=== PATIENT | female | born 1970 | race Asian ===

== ENCOUNTER 2021-04-01 17:26 | Emergency (ER) | payer OTHER ==
[2021-04-01 18:25] LABS: BASOPHILS % (AUTO) 0.2 %; EOSINOPHILS # (AUTO) 0.6 10^3/uL (0.0-0.7); EOSINOPHILS % (AUTO) 7.5 %; HGB - HEMOGLOBIN 11.4 g/dL (12.0-16.0); LYMPHOCYTES # (AUTO) 3.2 10^3/uL (1.5-3.5); LYMPHOCYTES % (AUTO) 37.1 %; MEAN CORPUSCULAR HEMOGLOBIN 29.2 pg (27.0-31.0); MEAN CORPUSCULAR HGB CONC 32.6 g/dL (32.0-36.0); MEAN CORPUSCULAR VOLUME 89.7 fL (81.0-99.0); MEAN PLATELET VOLUME 9.2 fL (7.9-10.8); MONOCYTES # (AUTO) 0.6 10^3/uL (0.0-1.0); MONOCYTES % (AUTO) 6.7 %; NEUTROPHILS # (AUTO) 4.1 10^3/uL (1.5-6.6); NEUTROPHILS % (AUTO) 48.4 %; PLT - PLATELET COUNT 299 10^3/uL (130-450); WHITE BLOOD COUNT 8.5 x10^3/uL (4.8-10.8)
[2021-04-01 18:36] LABS: ALBUMIN 4.8 g/dL (3.2-5.5); ALBUMIN/GLOBULIN RATIO 1.5 (1.0-2.2); BILIRUBIN,TOTAL 0.7 mg/dL (0.2-1.0); CALCIUM 8.9 mg/dL (8.5-10.3); CREATININE 0.8 mg/dL (0.4-1.0); POTASSIUM 3.9 mmol/L (3.5-5.0); TOTAL PROTEIN 7.9 g/dL (6.7-8.2)
[2021-04-01] MEDS ORDERED: DOXEPIN 10 MG CAPSULE PO STA (19:26)
[2021-04-01] MEDS ORDERED: FLUCONAZOLE 100 MG TABLET PO STA (19:26)
--- NOTE | 2021-04-01 19:27 | ED Physician Documentation ---
PD HPI ABD PAIN - Stated complaint Stated Complaint: FEMALE - Chief complaint Chief Complaint: Abd Pain - History obtained from History obtained from: Patient - Additional information Additional information: 50-year-old woman who has been dealing with some odd menses lately. Culminating in the last 2 weeks she has had heavy bleeding with clots. It is associated with a burning and itchy rash to the intertriginous folds. She has tried hydroxyzine for the itching which is not too helpful[place]. Review of Systems Ten Systems: 10 systems reviewed and negative Constitutional: reports: Reviewed and negative Eyes: reports: Reviewed and negative Cardiac: reports: Reviewed and negative PD PAST MEDICAL HISTORY - Present Medications Home Medications: Ambulatory Orders Medication Instructions Recorded Confirmed Doxepin [SINEquan] 10 mg PO TID PRN #30 cap 04/01/21 Fluticasone [Flonase] 2 spray RAYA DAILY 04/01/21 04/01/21 Montelukast [Singulair] 10 mg PO DAILY 04/01/21 04/01/21 Norgestimate-Ethinyl Estradiol 1 each PO TID #1 packet 04/01/21 [Ortho Tri-Cyclen 28 Tablet] - Allergies Allergies/Adverse Reactions: Allergies Allergy/AdvReac Type Severity Reaction Status Date / Time bismuth subsalicylate Allergy Rash Verified 04/01/21 17:59 [From Pepto-Bismol] PD ED PE NORMAL - Vitals Vital signs reviewed: Yes - General General: Alert and oriented X 3, No acute distress - HEENT HEENT: PERRL, EOMI - Neck Neck: Supple, no meningeal sign, No bony TTP - Abdomen Abdomen: Normal bowel sounds, Soft, Non tender - Derm Derm: Other (She has a yeast infection in the intertriginous folds of both eyes. It comes up to the mons and lower pelvic wall. Exam done with Ruby KEANE) - Neuro Neuro: Alert and oriented X 3, Normal speech Results - Vitals Vitals: Vital Signs - 24 hr 04/01/21 04/01/21 04/01/21 17:53 19:02 21:00 Temperature 35.9 C L 36.1 C L Heart Rate 76 76 77 Respiratory 16 16 17 Rate Blood Pressure 142/85 H 141/84 H 139/80 H O2 Saturation 97 98 97 Oxygen O2 Source Room air - Labs Labs: Laboratory Tests 04/01/21 04/01/21 04/01/21 18:03 18:15 19:51 WBC 8.5 RBC 3.90 L Hgb 11.4 L Hct 35.0 L MCV 89.7 MCH 29.2 MCHC 32.6 RDW 12.0 Plt Count 299 MPV 9.2 Neut # (Auto) 4.1 Lymph # (Auto) 3.2 [place] # (Auto) 0.6 Eos # (Auto) 0.6 Baso # (Auto) 0.0 Absolute Nucleated RBC 0.00 Nucleated RBC % 0.0 Sodium 139 Potassium 3.9 Chloride 102 Carbon Dioxide 28 Anion Gap 9.0 BUN 15 Creatinine 0.8 Estimated GFR (MDRD) 76 L Glucose 98 Calcium 8.9 Total Bilirubin 0.7 AST 18 ALT 14 Alkaline Phosphatase 53 Total Protein 7.9 Albumin 4.8 Globulin 3.1 Albumin/Globulin Ratio 1.5 Lipase 38 Urine Color RED/BLOODY Urine Clarity BLOODY Urine pH 5.5 Ur Specific [place] 1.025 Urine Protein 100 H Urine Glucose (UA) NEGATIVE Urine Ketones 15 H Urine Occult Blood LARGE H Urine Nitrite POSITIVE H Urine Bilirubin NEGATIVE Urine Urobilinogen 1 (NORMAL) Ur Leukocyte Esterase SMALL H Urine RBC TNTC H Urine WBC 4-5 Ur Squamous Epith Cells RARE Squamous Urine Bacteria Rare Ur Microscopic Review INDICATED Urine Culture Comments INDICATED Urine HCG, Qual NEGATIVE PD MEDICAL DECISION MAKING - ED course ED course: 50-year-old woman whose been having vaginal bleeding for the last 2 weeks. Hemodynamics are good. Mild anemia. test is negative. Ultrasound demonstrating ovarian cyst but a fairly thickened endometrial stripe. Case was discussed by phone with our on-call obstetric gynecologic financial operations consultant, Dr. Mcwilliams who agrees with high-dose control pending follow-up but does definitely follow-up for EMB versus potentially hysteroscopy. Departure - Departure Disposition: 01 Home, Self Care Condition: Good Record reviewed to determine appropriate education?: Yes Instructions: ED Bleed Irregular Vaginal, ED Vaginal Infec Fungal Genia Follow-Up: [facility] [Provider Group] Prescriptions: Norgestimate-Ethinyl Estradiol [Ortho Tri-Cyclen 28 Tablet] 1 each PO TID #1 packet Doxepin [SINEquan] 10 mg PO TID PRN #30 cap PRN Reason: Itching Comments: You were seen tonight for perimenopausal vaginal bleeding. Your hemoglobin was 11.4, hematocrit 35. White count and platelet counts were normal. Chemistries were normal. test was negative. We did an ultrasound which demonstrated a thickened endometrium with an endometrial stripe of 17 mm. This is abnormally thick. Discussed the case by phone with our obstetric financial operations consultant who recommended high-dose control but you do need to follow-up with your supervisor order takers for further evaluation which may include repeat ultrasonography or endometrial biopsy or hysteroscopy. You were also found to have a yeast infection of the skin folds in your groin. You did receive oral Diflucan for this which should take care of it but I am also prescribing the antiitch medication that we gave you here which was helpful for you. Return for new or worsening symptoms. Follow-up with the supervisor order takers that your primary care physician is deferring you to, if that does not work out I am also including the name of our local civilian supervisor order takers that she could follow-up with as well.
[2021-04-01 20:10] LABS: BILIRUBIN,URINE NEGATIVE (NEGATIVE); GLUCOSE, URINE (UA) NEGATIVE (NEGATIVE); KETONES,URINE (UA) 15 mg/dL (NEGATIVE); LEUKOCYTE ESTERASE, URINE SMALL (NEGATIVE); NITRITE,URINE POSITIVE (NEGATIVE); OCCULT BLOOD,URINE LARGE (NEGATIVE); PH,URINE 5.5 PH (5.0-7.5); PROTEIN,URINE 100 mg/dL (NEGATIVE); UROBILINOGEN,URINE 1 (NORMAL) E.U./dL (NORMAL)
[2021-04-01 20:12] LABS: CLARITY,URINE BLOODY (CLEAR)
[2021-04-01 20:14] LABS: HCG UR QUAL NEGATIVE
[2021-04-01 20:18] LABS: BACTERIA,URINE Rare /HPF (None Seen); RBC,URINE TNTC /HPF (0-5); SQUAMOUS EPITHELIAL CELL,UR RARE Squamous (<= Few)
[2021-04-01 22:01] VITALS: BP 140/81
--- NOTE | 2021-04-01 22:13 | Ultrasound Report ---
PROCEDURE: Pelvic w/Transvag+Doppler Comp INDICATIONS: Vaginal bleeding TECHNIQUE: Real-time scanning was performed of the pelvic organs, with image documentation. Additional endovagi nal scanning was necessary due to incomplete visualization of the adnexal and endometrial structures by transabdominal scanning. COMPARISON: None. FINDINGS: No pathologic free abdominal or pelvic fluid. Uterus: Uterus is normal in size at 8.9 x 5.4 x 6.4 cm. The endometrium measures 16.9 mm in combine d thickness. Ovaries: Right ovary measures 2.5 x 1.5 x 1.8 cm with total volume of 3.4 cc. Left ovary measures 3. 8 x 2.2 x 2.8 cm with total volume of 12.9 cm. There is a 2.2 x 1.4 x 2.3 cm cyst in the left ovary. Right ovary is sonographically normal. Doppler evaluation demonstrates normal vascular flow in the ov josue. IMPRESSION: 1. Mildly thickened endometrium measuring 16.9 cm secondary to hypertrophy or neoplastic process. Rec [facility] gynecology consultation. 2. 2.2 x 1.4 x 2.3 cm left ovarian cyst. Reviewed by: Keila Kam MD, PhD on 04/01/2021 10:12 PM PST Approved by: Keila Kam MD, PhD on 04/01/2021 10:12 PM PST Station ID: [id number]
== END 2021-04-01 22:00 | disposition home or self-care (01) ==
LOC: ED 17:26
DX: N93.9 Abnormal uterine and vaginal bleeding, unspecified (principal); R93.89 Abnormal findings on diagnostic imaging of other specified body structures
CPT/HCPCS: 36415; 76830; 76856; 80053; 81001; 81025; 83690; 85025; 87086; 93975; 99282; 99284; A9270; 81003

== ENCOUNTER 2021-04-09 17:39 | Emergency (ER) | payer OTHER ==
[2021-04-09 18:02] VITALS: BP 158/78
[2021-04-09 18:29] LABS: BILIRUBIN,URINE NEGATIVE (NEGATIVE); GLUCOSE, URINE (UA) NEGATIVE (NEGATIVE); KETONES,URINE (UA) NEGATIVE (NEGATIVE); LEUKOCYTE ESTERASE, URINE NEGATIVE (NEGATIVE); NITRITE,URINE NEGATIVE (NEGATIVE); OCCULT BLOOD,URINE TRACE-INTA (NEGATIVE); PROTEIN,URINE NEGATIVE (NEGATIVE); UROBILINOGEN,URINE 1 (NORMAL) E.U./dL (NORMAL)
--- NOTE | 2021-04-09 18:29 | ED Physician Documentation ---
History of Present Illness - Stated complaint Stated Complaint: FEMALE - Chief complaint Chief Complaint: General - History obtained from History obtained from: Patient - Additonal information Additional information: 50-year-old woman seen by me about a week ago for perimenopausal vaginal bleeding. She had an incidental likely yeast infection of the groin was treated with single dose Diflucan here, but continues to have a burning rash in the groin on both sides. 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 - Present Medications Home Medications: Ambulatory Orders Medication Instructions Recorded Confirmed Doxepin [SINEquan] 10 mg PO TID PRN #30 cap 04/01/21 Fluticasone [Flonase] 2 spray RAYA DAILY 04/01/21 04/01/21 Montelukast [Singulair] 10 mg PO DAILY 04/01/21 04/01/21 Norgestimate-Ethinyl Estradiol 1 each PO TID #1 packet 04/01/21 [Ortho Tri-Cyclen 28 Tablet] Fluconazole 150 mg PO Q3D #2 tablet 04/09/21 Nystatin [Nystop] 1 applic TOP BID #3 bottle 04/09/21 - Allergies Allergies/Adverse Reactions: Allergies Allergy/AdvReac Type Severity Reaction Status Date / Time bismuth subsalicylate Allergy Rash Verified 04/09/21 17:56 [From Pepto-Bismol] - Social History Does the pt smoke?: No Smoking Status: Never smoker Does the pt drink ETOH?: No Does the pt have substance abuse?: No - Immunizations Immunizations are current?: Yes PD ED PE NORMAL - Vitals Vital signs reviewed: Yes - General General: Alert and oriented X 3, No acute distress - Abdomen Abdomen: Soft, Non tender - Female Female : Other (External groin exam done with RN present and Corine gibbs, she appears to have vulvar candidiasis.) - Neuro Neuro: Alert and oriented X 3, Normal speech Results - Vitals Vitals: Vital Signs - 24 hr 04/09/21 17:58 Temperature 36.5 C Heart Rate 73 Respiratory 18 Rate Blood Pressure 158/78 H O2 Saturation 99 Oxygen O2 Source Room air - Labs Labs: Laboratory Tests 04/09/21 18:15 Urine Color YELLOW Urine Clarity CLEAR Urine pH 7.0 Ur Specific [place] 1.020 Urine Protein NEGATIVE Urine Glucose (UA) NEGATIVE Urine Ketones NEGATIVE Urine Occult Blood TRACE-INTA Urine Nitrite NEGATIVE Urine Bilirubin NEGATIVE Urine Urobilinogen 1 (NORMAL) Ur Leukocyte Esterase NEGATIVE Ur Microscopic Review NOT INDICATED Urine Culture Comments NOT INDICATED Urine HCG, Qual NEGATIVE Departure - Departure Disposition: 01 Home, Self Care Clinical Impression: Candidiasis of genitalia Condition: Good Record reviewed to determine appropriate education?: Yes Instructions: ED Vaginal Infec Fungal Genia Follow-Up: Alexia Pascual MD [Provider Admit Priv/Credential] - Prescriptions: Fluconazole 150 mg PO Q3D #2 tablet Nystatin [Nystop] 1 applic TOP BID #3 bottle Comments: It still looks like a yeast infection that has not cleared up from the prior treatment. For that I am giving you a longer course of treatment. Please note that you only take the pill every 3 days, and you got 1 tonight so your next dose would be Thursday and then after that Thursday. You can also use the powder which should be helpful. Continue your efforts to try to get in with the gynecology clinic as you still need that follow-up based on the prior diagnostic information. Return if worsening. Urinalysis is normal.
[2021-04-09 18:33] LABS: CLARITY,URINE CLEAR (CLEAR); HCG UR QUAL NEGATIVE
[2021-04-09] MEDS: FLUCONAZOLE 100 MG TABLET PO STA (18:40)
== END 2021-04-09 18:44 | disposition home or self-care (01) ==
LOC: ED 17:39
DX: B37.3 Candidiasis of vulva and vagina (principal)
CPT/HCPCS: 81003; 81025; 99283; A9270; 81001; 87086

== ENCOUNTER 2021-04-17 20:18 | Emergency (ER) | payer OTHER ==
--- NOTE | 2021-04-17 20:41 | ED Physician Documentation ---
PD HPI FEMALE - Stated complaint Stated Complaint: FEMALE - Chief complaint Chief Complaint: Abd Pain - History obtained from History obtained from: Patient - History of Present Illness Timing - onset: How many months ago (1) Timing - details: Abrupt onset, Waxing and waning Pain level max: 0 Pain level max: 0 Associated symptoms: Vaginal bleeding. No: Fever, Abdominal pain, Back pain, Pelvic pain, Vaginal pain Contributing factors: No: Recently seen: Clinic, Emergency Dept - Additional information Additional information: c/o vaginal bleeding starting in February, intermittent since then but recently restarted. She also c/o vulvar pruritis. She was evaluated at [facility] before then being evaluated in [facility] ED 04/01 (prescribed ortho tri and doxepin for prutitis, then returned to this ED 04/09 for same c/o, prescribe fluconazole , 1 Q3 days x 3 doses total, as well as nystatin topical. She says she has an appointment with motion picture set worker next week but is concerned with the ongoing vaginal bleeding and irritated by the ongoing pruritis. Review of Systems Constitutional: denies: Fever : reports: Vaginal bleeding. 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 - Present Medications Home Medications: Ambulatory Orders Medication Instructions Recorded Confirmed Doxepin [SINEquan] 10 mg PO TID PRN #30 cap 04/01/21 Fluticasone [Flonase] 2 spray RAYA DAILY 04/01/21 04/01/21 Montelukast [Singulair] 10 mg PO DAILY 04/01/21 04/01/21 Norgestimate-Ethinyl Estradiol 1 each PO TID #1 packet 04/01/21 [Ortho Tri-Cyclen 28 Tablet] Fluconazole 150 mg PO Q3D #2 tablet 04/09/21 Nystatin [Nystop] 1 applic TOP BID #3 bottle 04/09/21 Doxepin [SINEquan] 10 mg PO TID PRN #20 cap 04/17/21 Ketoconazole 2% Cream [Nizoral 2% 1 applic TOP BID #15 gm 04/17/21 Cream] - Allergies Allergies/Adverse Reactions: Allergies Allergy/AdvReac Type Severity Reaction Status Date / Time bismuth subsalicylate Allergy Rash Verified 04/17/21 20:23 [From Pepto-Bismol] - Social History Does the pt smoke?: No Smoking Status: Never smoker Does the pt drink ETOH?: No Does the pt have substance abuse?: No - Immunizations Immunizations are current?: Yes PD ED PE NORMAL - Vitals Vital signs reviewed: Yes - General General: Alert and oriented X 3, No acute distress, Well developed/nourished - Abdomen Abdomen: Soft, Non tender - Female Female : Online Services Manager present, Other (no active bleeding. there is a confluent flat exanthem surrounding vulva and extending to proximal thighs and outer margins of gluteal fold; it is dry, scaly, and has violaceous hue) Results - Vitals Vitals: Oxygen O2 Source Room air - Labs Labs: Laboratory Tests 04/17/21 21:20 WBC 8.4 RBC 3.48 L Hgb 9.8 L Hct 30.1 L MCV 86.5 MCH 28.2 MCHC 32.6 RDW 11.8 L Plt Count 322 MPV 8.6 Neut # (Auto) 4.0 Lymph # (Auto) 3.2 [place] # (Auto) 0.6 Eos # (Auto) 0.7 Baso # (Auto) 0.0 Absolute Nucleated RBC 0.00 Nucleated RBC % 0.0 PD MEDICAL DECISION MAKING - ED course Complexity details: reviewed results, considered differential, d/w patient ED course: repeat CBC shows drop in hemoglobin but not to extent that requires further emergent testing nor intervention (such as transfusion). The exanthem appears possibly c/w tinea cruris; while fluconazole should cover this organism, nystatin often does not and thus will trial on ketoconazole until she can follow up. She says the doxepin had been working for the pruritis at night but she is out, and a new rx for this is sent to her pharmacy Departure - Departure Disposition: 01 Home, Self Care Clinical Impression: Tinea cruris Condition: Good Instructions: ED Bleed Irregular Vaginal, ED Tinea Cruris General Prescriptions: Ketoconazole 2% Cream [Nizoral 2% Cream] 1 applic TOP BID #15 gm Doxepin [SINEquan] 10 mg PO TID PRN #20 cap PRN Reason: Itching Comments: Stop the previously prescribed powder and instead apply the cream I have prescribed (ketoconazole). The prescription has been electronically submitted to [facility] pharmacy in [place], as well as a prescription for the doxepin (to help with the itching) Discharge Date/Time: 04/17/21 23:15
[2021-04-17 21:26] LABS: BASOPHILS % (AUTO) 0.5 %; EOSINOPHILS # (AUTO) 0.7 10^3/uL (0.0-0.7); HCT - HEMATOCRIT 30.1 % (37.0-47.0); HGB - HEMOGLOBIN 9.8 g/dL (12.0-16.0); LYMPHOCYTES # (AUTO) 3.2 10^3/uL (1.5-3.5); LYMPHOCYTES % (AUTO) 37.7 %; MEAN CORPUSCULAR HEMOGLOBIN 28.2 pg (27.0-31.0); MEAN CORPUSCULAR HGB CONC 32.6 g/dL (32.0-36.0); MEAN CORPUSCULAR VOLUME 86.5 fL (81.0-99.0); MEAN PLATELET VOLUME 8.6 fL (7.9-10.8); MONOCYTES # (AUTO) 0.6 10^3/uL (0.0-1.0); MONOCYTES % (AUTO) 6.6 %; NEUTROPHILS % (AUTO) 47.1 %; PLT - PLATELET COUNT 322 10^3/uL (130-450); RED BLOOD COUNT 3.48 10^6/uL (4.20-5.40); RED CELL DISTRIBUTION WIDTH 11.8 % (12.0-15.0); WHITE BLOOD COUNT 8.4 x10^3/uL (4.8-10.8)
[2021-04-17 23:16] VITALS: BP 141/65
== END 2021-04-17 23:15 | disposition home or self-care (01) ==
LOC: ED 20:18
DX: B35.6 Tinea cruris (principal); N93.9 Abnormal uterine and vaginal bleeding, unspecified
CPT/HCPCS: 36415; 85025; 99283

== ENCOUNTER 2021-05-09 06:34 | Day surgery (SDC) | payer OTHER ==
[~2021-05-09 06:34] MED LIST: ACETAMINOPHEN 500 MG TABLET PO ONE; CELECOXIB 100 MG CAPSULE PO ONE; GABAPENTIN 400 MG CAPSULE ONE
[2021-05-09 06:57] LABS: HCG UR QUAL NEGATIVE
[2021-05-09] MEDS ORDERED: BUPIVACAINE 0.5% PF 10 ML VIAL ONE ×2 (07:04→07:19)
[2021-05-09] MEDS ORDERED: LEVONORGESTREL 20 MCG/24H IUD IY ONE ×2 (07:06→08:44)
[2021-05-09] MEDS ORDERED: LIDOCAINE-MPF 2% 5 ML VIAL ONE (07:16)
[2021-05-09] MEDS ORDERED: PROPOFOL 200 MG/20 ML VIAL IVP ONE (07:16)
[2021-05-09] MEDS ORDERED: LIDOCAINE MPF 2%-EPI 1:200000 20 ML VIAL ONE (07:18)
[2021-05-09] MEDS ORDERED: LACTATED RINGERS 1,000 ML IV ONE (07:20)
[2021-05-09] MEDS ORDERED: fentaNYL 100 MCG/2 ML VIAL ONE (07:24)
[2021-05-09] MEDS ORDERED: MIDAZOLAM 2 MG/2 ML VIAL ONE (07:24)
[2021-05-09 07:26] LABS: BASOPHILS % (AUTO) 0.3 %; EOSINOPHILS # (AUTO) 0.1 10^3/uL (0.0-0.7); EOSINOPHILS % (AUTO) 1.9 %; LYMPHOCYTES # (AUTO) 2.3 10^3/uL (1.5-3.5); LYMPHOCYTES % (AUTO) 38.9 %; MEAN CORPUSCULAR HEMOGLOBIN 25.8 pg (27.0-31.0); MEAN CORPUSCULAR HGB CONC 31.3 g/dL (32.0-36.0); MEAN CORPUSCULAR VOLUME 82.5 fL (81.0-99.0); MEAN PLATELET VOLUME 8.8 fL (7.9-10.8); MONOCYTES # (AUTO) 0.4 10^3/uL (0.0-1.0); MONOCYTES % (AUTO) 6.5 %; NEUTROPHILS % (AUTO) 52.2 %; PLT - PLATELET COUNT 317 10^3/uL (130-450); RED BLOOD COUNT 3.88 10^6/uL (4.20-5.40); RED CELL DISTRIBUTION WIDTH 13.3 % (12.0-15.0); WHITE BLOOD COUNT 5.8 x10^3/uL (4.8-10.8)
[2021-05-09] MEDS ORDERED: ePHEDrine 50 MG/ML VIAL IVP PRN (07:27)
[2021-05-09] MEDS ORDERED: METOCLOPRAMIDE 10 MG/2 ML VIAL IVP PRN (07:27)
[2021-05-09] MEDS ORDERED: fentaNYL 100 MCG/2 ML VIAL IVP PRN (07:27)
[2021-05-09] MEDS ORDERED: MORPHINE 2 MG/ML CARPUJECT IVP PRN (07:27)
[2021-05-09] MEDS ORDERED: HYDROmorphone 0.5 MG/0.5 ML SYRINGE IVP PRN (07:27)
[2021-05-09] MEDS ORDERED: NALOXONE 0.4 MG/ML VIAL IVP PRN (07:27)
[2021-05-09] MEDS ORDERED: ATROPINE ABBOJECT 1 MG/10 ML SYRINGE IVP PRN (07:27)
[2021-05-09] MEDS ORDERED: ONDANSETRON 4 MG/2 ML VIAL IVP PRN (07:27)
--- NOTE | 2021-05-09 07:27 | ANESTHESIA ---
Pre-Anesthesia VS, & Labs - Diagnosis thickened endometrium, dysfunctional uterine bleeding - Procedure myosure hysteroscopy, D&C, possible IUD placement Vital Signs: Temp Pulse Resp BP Pulse Ox 36.5 C 77 14 146/73 H 100 05/09/21 07:05 05/09/21 07:05 05/09/21 07:05 05/09/21 07:05 05/09/21 07:05 Height: 5 ft 1 in Weight (kg): 68.1 kg Body Mass Index: 28.3 BMI Classification: Overweight - NPO >8 hours Last Fluid Intake: sips with eras meds - Is Patient ?: No - Lab Results Lab results reviewed: Yes Home Medications and Allergies Fluticasone [Flonase] 2 spray RAYA DAILY 04/01/21 Montelukast [Singulair] 10 mg PO DAILY 04/01/21 Allergies/Adverse Reactions: Allergies Allergy/AdvReac Type Severity Reaction Status Date / Time bismuth subsalicylate Allergy Rash Verified 04/17/21 20:23 [From Pepto-Bismol] Anes History & Medical History - Anesthetic History Anesthesia Complications: reports: No previous complications Family history of Anesthesia Complications: Denies Family history of Malignant Hyperthermia: Denies - Medical History Cardiovascular: reports: None Pulmonary: reports: None Gastrointestinal: reports: None Urinary: reports: None Skin: reports: None Smoking Status: Never smoker History of Cancer?: No - Surgical History General: reports: Appendectomy Gynecologic: reports: section Exam General: Alert, Oriented x3, Cooperative Dental: WNL Mouth Opening: Greater than 4 Fingerbreadths Neck Mobility: Normal Mallampati classification: I Thyromental Distance: 4-6 cm Respiratory: Lungs clear, Normal breath sounds, No respiratory distress Cardiovascular: Regular rate Neurological: Normal speech Mental/Cognitive Status: Alert/Oriented X3, Normal for patient Cognitive Status: Within normal limits Plan Anesthesia Type: General Consent for Procedure(s) Verified and Reviewed: Yes Code Status: Attempt Resuscitation ASA classification: 1-Healthy patient Is this case an emergency?: No
[2021-05-09] MEDS ORDERED: LACTATED RINGERS 1,000 ML IV SCH (08:00)
[2021-05-09] MEDS ORDERED: LIDOCAINE MPF 2%-EPI 1:200000 20 ML VIAL SUBQ ONE (08:15)
[2021-05-09] MEDS ORDERED: BUPIVACAINE 0.5% PF 10 ML VIAL SUBQ ONE (08:15)
[2021-05-09] MEDS ORDERED: LACTATED RINGERS 400 ML IV ONE (08:40)
--- NOTE | 2021-05-09 08:53 | OPERATIVE REPORT ---
Operative Report - General Procedure Date: 05/09/21 Planned Procedure: Hysteroscopy D&C with possible polypectomy and IUD placement Pre-Op Diagnosis: Dysfunctional uterine bleeding and thickened endometrium Procedure Performed: Hysteroscopy D&C and Mirena IUD placement Mirena lot # [id number] Exp 11/07 Post Op Diagnosis: Same - Procedure Note Primary Surgeon: Zuri Pascual MD Secondary Surgeon: none Anesthesia Provider: Patrice Sweeney CRNA Anesthesia Technique: General LMA Pathology: uterine contents IV Fluids (mL): 600 Estimated Blood Loss (mL): 5 Urine Output (mL): 50 Indications: Risks benefits and alternatives to the procedure were reviewed. Consent was again confirmed. Patient was taken to the operating room where she underwent general anesthesia. She was positioned in dorsolithotomy position with legs resting in yellowfin stirrups. She was prepped and draped in the usual sterile fashion. Preoperative antibiotics were not indicated. Preoperative checklist was performed. Exam under anesthesia was performed. Speculum was placed in the vagina and the cervix was visualized. Single-tooth tenaculum was placed at the anterior cervical lip. Paracervical block was administered using a total of 20 cc of 2% lidocaine and 0.25% bupivicaine with epinephrine was injected at the 4:00 and 8:00 positions lateral to the portio of the cervix. The cervical os was serially dilated with Hegar dilators to accommodate the caliber of the diagnostic hysteroscope. Uterus sounded to 8 cm. The hysteroscope was inserted and findings were noted as above. The hysteroscopic morcellator was inserted through the operative port. The intrauterine polypoid tissue were morcellated under direct visualization. Uterine cavity was smooth at close of the procedure. Hysteroscope was removed. Mirena IUD was then inserted accoridng to package directions. Strings were trimmed to 3 cm. All instruments were removed from the uterus. Tenaculum was removed. Tenaculum sites were noted to be hemostatic. All instruments were removed from the vagina. Procedure was well-tolerated without complication. Fluid deficit: 190 cc NS Findings: Uterine cavity with polypoid tissue. Bilateral tubal ostia. Smooth uterine cavity at close of procedure. Complications: None - Other Other Information/Narrative: Pt is a 50 yo female with dysfunctional uterine bleeding with multiple presentations to the ED for high volume flow, EMS 16.9 cm on pelvic us, and drop in HCT to 30-32 given chronic bleeding here for surgical management with hysteroscopy D&C and Mirena IUD placement.
[2021-05-09] MEDS ORDERED: ONDANSETRON 4 MG/2 ML VIAL ONE (10:21)
[2021-05-09 10:35] VITALS: BP 134/75
--- NOTE | 2021-05-09 14:37 | ANESTHESIA POST OP EVALUATION ---
Anesthesia Post Eval - Post Anesthesia Eval Vitals: Last Vital Signs Temp 36.7 C 05/09/21 10:30 Pulse 71 05/09/21 10:30 Resp 16 05/09/21 10:30 BP 134/75 H 05/09/21 10:30 Pulse Ox 100 05/09/21 10:30 CV Function Including HR & BP: Stable Pain Control: Satisfactory Nausea & Vomiting: Negative Mental Status: Baseline Respiratory Status: Airway Patent Hydration Status: Satisfactory Anesthesia Complications: None
== END 2021-05-09 06:35 | disposition home or self-care (01) ==
LOC: SDS 06:34
PROVIDERS: ATTEND Obstetrics & Gynecology
PROC: 0UDB8ZZ Extraction of Endometrium, Via Natural or Artificial Opening Endoscopic (ICD-10-PCS; principal; 2021-05-09 07:30)
DX: N93.8 Other specified abnormal uterine and vaginal bleeding (principal); R93.89 Abnormal findings on diagnostic imaging of other specified body structures; Z30.430 Encounter for insertion of intrauterine contraceptive device
CPT/HCPCS: 36415; 58300; 58558; 81025; 85025; A9270; J7120; J7298

== ENCOUNTER 2023-03-27 09:36 | Day surgery (SDC) | payer OTHER ==
[2023-03-27 09:53] LABS: HCG UR QUAL NEGATIVE
[2023-03-27] MEDS ORDERED: LACTATED RINGERS 1,000 ML IV ONE ×2 (10:21→12:00)
--- NOTE | 2023-03-27 10:49 | ANESTHESIA ---
Pre-Anesthesia VS, & Labs - Diagnosis screening - Procedure colonoscopy Vital Signs: Temp Pulse Resp BP Pulse Ox O2 Flow Rate 36.6 C 79 17 126/83 H 99 03/27/23 09:42 03/27/23 09:42 03/27/23 09:42 03/27/23 09:42 03/27/23 09:42 Height: 5 ft 1 in Weight (kg): 67 kg Body Mass Index: 27.8 BMI Classification: Overweight - NPO >8 hours Last Fluid Intake: am prep - Is Patient ?: No - Lab Results Lab results reviewed: Yes Home Medications and Allergies Fluticasone [Flonase] 2 spray RAYA DAILY 04/01/21 Montelukast [Singulair] 10 mg PO DAILY 04/01/21 Allergies/Adverse Reactions: Allergies Allergy/AdvReac Type Severity Reaction Status Date / Time bismuth subsalicylate Allergy Rash Verified 04/17/21 20:23 [From Pepto-Bismol] Anes History & Medical History - Anesthetic History Anesthesia Complications: reports: No previous complications Family history of Anesthesia Complications: Denies Family history of Malignant Hyperthermia: Denies - Medical History Cardiovascular: reports: None Pulmonary: reports: Asthma Gastrointestinal: reports: Hemorrhoids Urinary: reports: None Musculoskeletal: reports: None Endocrine/Autoimmune: reports: None Skin: reports: None Smoking Status: Never smoker - Surgical History General: reports: Appendectomy Gynecologic: reports: section Exam General: Alert, Oriented x3, Cooperative Dental: WNL Mouth Openin Fingerbreadth Neck Mobility: Normal Mallampati classification: II Thyromental Distance: 4-6 cm Respiratory: Lungs clear Cardiovascular: Regular rate Mental/Cognitive Status: Alert/Oriented X3, Normal for patient Cognitive Status: Within normal limits Plan Anesthesia Type: Total IV Consent for Procedure(s) Verified and Reviewed: Yes Code Status: Attempt Resuscitation ASA classification: 2-Mild systemic disease Is this case an emergency?: No
[2023-03-27] MEDS ORDERED: PROPOFOL 500 MG/50 ML 500 MG/50 ML VIAL ONE (11:15)
[2023-03-27] MEDS ORDERED: MIDAZOLAM 2 MG/2 ML VIAL ONE (11:18)
--- NOTE | 2023-03-27 11:25 | HISTORY & PHYSICAL EXAMINATION ---
Chief Complaint - Chief Complaint Chief Complaint: here for colonoscopy History of Present Illness - History Obtained From Records Reviewed: yes History obtained from: pt Exam Limitations: none - History of Present Illness HPI Comment/Other: here for colon cancer screening. 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 Meds/Allgy - Home Medications Home Medications: Ambulatory Orders Medication Instructions Recorded Confirmed Fluticasone [Flonase] 2 spray RAYA DAILY 04/01/21 03/27/23 Montelukast [Singulair] 10 mg PO DAILY 04/01/21 03/27/23 Doxepin [SINEquan] 10 mg PO TID PRN #20 cap 04/17/21 03/26/23 Acetaminophen [Acetaminophen Extra 1,000 mg PO Q8H PRN #60 tablet 05/09/21 03/27/23 Strength] Docusate Sodium 100Mg Capsule 100 - 200 mg PO BID PRN #60 cap 05/09/21 03/27/23 [Colace 100Mg Capsule] Ibuprofen [Motrin] 600 mg PO Q6H PRN #60 tab 05/09/21 03/27/23 - Allergies Allergies/Adverse Reactions: Allergies Allergy/AdvReac Type Severity Reaction Status Date / Time bismuth subsalicylate Allergy Rash Verified 04/17/21 20:23 [From Pepto-Bismol] Review of Systems - Other Findings Other Findings: 10 pt ros as above otherwise unremarkable Exam - Vital Signs Vital Signs: Vital Signs x48h Temp Pulse Resp BP Pulse Ox 03/27/23 09:42 36.6 C 79 17 126/83 H 99 - Physical Exam General Appearance: positive: No acute distress, Alert Eyes Bilateral: positive: PERRL, EOMI ENT: positive: No signs of dehydration Neck: positive: No JVD, Trachea midline Respiratory: positive: No respiratory distress Cardiovascular: positive: Regular rate & rhythm Abdomen: positive: No distention Neurologic/Psychiatric: positive: Oriented x3 Conclusion/Plan - Problem List (1) Colon cancer screening Conclusion/Plan: plan colonoscopy. parq held and consent obtained - Lab Results Lab results reviewed: Yes
[2023-03-27] MEDS ORDERED: LIDOCAINE-MPF 2% 5 ML VIAL ONE (11:40)
--- NOTE | 2023-03-27 12:09 | ANESTHESIA POST OP EVALUATION ---
Anesthesia Post Eval - Post Anesthesia Eval Vitals: Last Vital Signs Temp 36.5 C 03/27/23 12:00 Pulse 70 03/27/23 12:00 Resp 17 03/27/23 12:00 BP 85/53 L 03/27/23 12:00 Pulse Ox 95 03/27/23 12:00 O2 Flow Rate CV Function Including HR & BP: Stable Pain Control: Satisfactory Nausea & Vomiting: Negative Mental Status: Baseline Respiratory Status: Airway Patent Hydration Status: Satisfactory Anesthesia Complications: None
[2023-03-27 12:18] VITALS: BP 118/68; O2SAT 96
== END 2023-03-27 09:37 | disposition home or self-care (01) ==
LOC: SDS 09:36
PROVIDERS: ATTEND Surgery
DX: Z12.11 Encounter for screening for malignant neoplasm of colon (principal); K57.30 Diverticulosis of large intestine without perforation or abscess without bleeding; J45.909 Unspecified asthma, uncomplicated
CPT/HCPCS: 45378; 81025; J7120

== ENCOUNTER 2023-04-01 09:54 | Emergency (ER) | payer OTHER ==
--- NOTE | 2023-04-01 11:13 | XRAY Report ---
PROCEDURE: Abdomen 2 View X-Ray INDICATIONS: constipation TECHNIQUE: 2 views of the abdomen were acquired. COMPARISON: None. FINDINGS: Surgical changes and devices: None. Bowel: No pneumoperitoneum. The bowel gas pattern is normal. Mild stool burden in the pelvis and de scending colon. Soft tissues: No masses; visualized solid organ contours appear normal in size. No suspicious abdom inal calcifications. Bones: No suspicious bony abnormalities. IMPRESSION: No acute abdominal pathology. Mild stool burden within the pelvis and descending colon. Reviewed by: Kenny Bolivar MD on 04/01/2023 11:12 AM [facility] Approved by: Kenny Bolivar MD on 04/01/2023 11:12 AM [facility] Station ID: [id number]
--- NOTE | 2023-04-01 12:43 | ED Physician Documentation ---
History of Present Illness - Stated complaint Stated Complaint: GI, ABD PX,WEAKNESS,CHILLS - Chief complaint Chief Complaint: Abd Pain - Additonal information Additional information: 52-year-old female presents emergency department for evaluation of constipation. She underwent a colonoscopy on March 27. She reports that she had a bowel movement on the and . They were softer than normal because she was taking prune juice. However no bowel movement yesterday and this morning when she tries to defecate it is painful and she has pain when sitting. She states that only a small amount of hard stool came out. No fevers or vomiting. Review of Systems Constitutional: denies: Fever Nose: reports: Reviewed and negative Cardiac: reports: Reviewed and negative Respiratory: reports: Reviewed and negative GI: reports: Abdominal Pain, Constipation : reports: Reviewed and negative PD PAST MEDICAL HISTORY - Past Medical History Past Medical History: Yes Cardiovascular: None Respiratory: Asthma Neuro: None Endocrine/Autoimmune: None GI: Hemorrhoids : None HEENT: None Psych: None Musculoskeletal: None Derm: None - Past Surgical History Past Surgical History: Yes General: Appendectomy, Colonoscopy /[employer]: section - Present Medications Home Medications: Ambulatory Orders Medication Instructions Recorded Confirmed Fluticasone [Flonase] 2 spray RAYA DAILY 04/01/21 03/27/23 Montelukast [Singulair] 10 mg PO DAILY 04/01/21 03/27/23 Doxepin [SINEquan] 10 mg PO TID PRN #20 cap 04/17/21 03/26/23 Acetaminophen [Acetaminophen Extra 1,000 mg PO Q8H PRN #60 tablet 05/09/21 03/27/23 Strength] Docusate Sodium 100Mg Capsule 100 - 200 mg PO BID PRN #60 cap 05/09/21 03/27/23 [Colace 100Mg Capsule] Ibuprofen [Motrin] 600 mg PO Q6H PRN #60 tab 05/09/21 03/27/23 - Allergies Allergies/Adverse Reactions: Allergies Allergy/AdvReac Type Severity Reaction Status Date / Time bismuth subsalicylate Allergy Rash Verified 04/01/23 10:02 [From Pepto-Bismol] - Social History Does the pt smoke?: No Smoking Status: Never smoker Does the pt drink ETOH?: No Does the pt have substance abuse?: No - Immunizations Immunizations are current?: Yes PD ED PE NORMAL - General General: Alert and oriented X 3, No acute distress - HEENT HEENT: Atraumatic - Neck Neck: Supple, no meningeal sign - Cardiac Cardiac: RRR, No murmur - Respiratory Respiratory: No respiratory distress, Clear bilaterally - Abdomen Abdomen: Normal bowel sounds, Soft. No: Non tender (Mild tenderness on the lower abdomen mostly left lower quadrant. No guarding or rebound.) - Derm Derm: Normal color, Warm and dry, No rash - Extremities Extremities: No deformity - Neuro Neuro: Alert and oriented X 3 Eye Opening: Spontaneous Motor: Obeys Commands Verbal: Oriented GCS Score: 15 Results - Vitals Vitals: Vital Signs - 24 hr 04/01/23 10:02 Temperature 36.5 C Heart Rate 65 Respiratory 16 Rate Blood Pressure 150/78 H O2 Saturation 99 Oxygen O2 Source Room air - Rads (name of study) abd xr Relevant Findings:: Final report received (No acute abdominal pathology. Mild stool burden within the pelvis and descending colon.) PD Medical Decision Making - ED course Complexity details: reviewed old records, d/w patient, d/w family ED course: 52-year-old female presents emergency department for evaluation of constipation. She underwent colonoscopy this last Thursday. 24 hours after the colonoscopy she began having softer bowel movements after taking prune juice. However no bowel movement yesterday and today when she did try and defecate she found it painful and only a small amount of stool came out. She has had no fevers or vomiting. Abdominal exam reveals some mild lower abdominal and left-sided tenderness. A 2 view abdominal x-ray reveals some stool within the pelvis and descending colon. Here in the emergency department she is without fever tachycardia or hypotension. I have low suspicion for perforation given the lack of free air and nonperitoneal abdominal exam. I discussed with patient that it may take some time for the regularity to return. I did offer a rectal examination to see if there is any burden of stool that could be manually disimpacted versus simple fleets enema. Initially the patient wanted the rectal exam but tiera decided she would prefer to discharge home with a fleets enema. Clinically I feel that this is a reasonable decision. I am encouraging her to continue to increase her hydration and use Metamucil as well as a fleets enema at home. The usual emergent return precautions for failure symptoms to resolve was discussed. Departure - Departure Disposition: 01 Home, Self Care Clinical Impression: Constipation Qualifiers: Constipation type: unspecified constipation type Qualified Code(s): K59.00 - Constipation, unspecified Condition: Stable Instructions: ED Constipation Comments: Its not uncommon for there to be some irregularity in bowel movements after colonoscopy. I think you are doing the right things at home trying to manage the constipation by increasing your water intake, taking Metamucil and increasing fiber. The x-ray of your abdomen does show that there is some stool within your descending colon. I did offer a rectal evaluation with possible disimpaction but at this time you feel that you would like to try a fleets enema instead which is a reasonable choice. I recommend that you stop at the pharmacy and buy 1 or 2 fleets enemas. Use them at home. Try and retain the enema for about 30 minutes. This should soften the stool burden and allow for easier defecation. Return immediately to the ER if you find that you are having any new or worsening symptoms, fevers, uncontrolled vomiting or feel that your constipation does not resolve with the simple measures. Forms: PCP List
[2023-04-01 13:11] VITALS: BP 128/77; O2SAT 98
== END 2023-04-01 13:08 | disposition home or self-care (01) ==
LOC: ED 09:54
DX: K59.00 Constipation, unspecified (principal)
CPT/HCPCS: 99283